=== PATIENT | male | born 1995 | race Caucasian/White ===

== ENCOUNTER → 2018-12-03 | Outpatient (CLI) | payer OTHER ==
--- NOTE | 2018-12-03 14:28 | REP ---
MRI POSTERIOR CHEST WALL: MRI posterior chest wall performed utilizing multiple sequences in the axial, coronal and sagittal planes prior to and following the intravenous administration of 15 mL ProHance. Reportedly, there is a palpable lump superiorly of the left posterior chest wall. The area is marked on the skin. At the site of the palpable lump, there is an oval benign appearing lipoma. It measures 7.7 x 1.4 x 7.0 cm. There is no internal soft tissue component and no significant internal enhancement. Other adjacent soft tissue structures demonstrate normal signal. No other soft tissue mass is seen of the visualized chest wall. IMPRESSION: At the site of the palpable abnormality in the posterior left chest wall, there is an oval benign appearing lipoma which measures 7.7 x 1.4 x 7.0 cm. Clinical followup is recommended. Repeat imaging would be recommended if there is increased size or pain associated with the mass. Electronically Signed by Karel Arreguin MD 12/03/2018 02:37 P
== END ==
LOC: M PLARAD 09:53
PROVIDERS: ATTEND Preventive Medicine Undersea and Hyperbaric Medicine
DX: D21.6 Benign neoplasm of connective and other soft tissue of trunk, unspecified (principal)

== ENCOUNTER 2020-07-24 22:49 | Emergency (ER) | payer OTHER ==
[~2020-07-24] VITALS: Ht 182.9 cm; Wt 95.6 kg
[2020-07-24 22:50] VITALS: BP 128/76
--- OUTSIDE RECORDS SUMMARY | 2020-07-24 22:54 | CCD ---
Author Author [facility] Organization [facility] Address Unknown Phone Unavailable Support Name Relationship Address Phone ALEKSANDRA ROMO Next Of Kin [id number] [place], [place] [id number] [facility] Next Of Kin [address] [place] [address] Unavailable Re-disclosure Warning The records that you are about to access may contain information from federally-assisted alcohol or drug abuse programs. If such information is present, then the following federally mandated warning applies: This information has been disclosed to you from records protected by federal confidentiality rules (42 CFR part 2). The federal rules prohibit you from making any further disclosure of this information unless further disclosure is expressly permitted by the written consent of the person to whom it pertains or as otherwise permitted by 42 CFR part 2. A general authorization for the release of medical or other information is NOT sufficient for this purpose. The Federal rules restrict any use of the information to criminally investigate or prosecute any alcohol or drug abuse patient.The records that you are about to access may contain highly sensitive health information, the redisclosure of which is protected by Article 27-F of the [facility] Public Health law. If you continue you may have access to information: Regarding HIV / AIDS; Provided by facilities licensed or operated by the [facility] Office of Mental Health; or Provided by the [facility] Office for People With Developmental Disabilities. If such information is present, then the following [facility] mandated warning applies: This information has been disclosed to you from confidential records which are protected by state law. State law prohibits you from making any further disclosure of this information without the specific written consent of the person to whom it pertains, or as otherwise permitted by law. Any unauthorized further disclosure in violation of state law may result in a fine or long term sentence or both. A general authorization for the release of medical or other information is NOT sufficient authorization for further disc losure. Family History Family Member Name Family Member Gender Family Member Status Date o f Status Description Data Source(s) Unknown Male Problem [facility] ([facility]) Insurance Providers Payer name Policy type / Coverage type Policy ID Covered constitution party ID Covered constitution party's relationship to aguila Policy [place] Plan Information [employer] [id number] SP [id number] [employer] [place] [id number] 18 [id number] [employer] - PHYSICIAN [id number] 18 [id number] [employer] - O/P [id number] 18 [id number] [employer] - O/P [id number] 18 [id number] [employer] - O/P [id number] 18 [id number] [employer] [id number] Self [id number] [employer] [place] [id number] 18 [id number] [employer] [id number] Self [id number]
[2020-07-24] MEDS ORDERED: CETI-24 PO (22:59)
[2020-07-24] MEDS ORDERED: predniSONE 20 MG TAB PO ONE (23:15)
[2020-07-24] MEDS ORDERED: PRED20TA PO (23:18)
[2020-07-24] MEDS ORDERED: TRIA1CR80 TOP (23:18)
--- OUTSIDE RECORDS SUMMARY | 2020-07-24 23:31 | CCD ---
Author Author [facility] Organization [facility] Address Unknown Phone Unavailable Support Name Relationship Address Phone ALEKSANDRA ROMO Next Of Kin [id number], [place] [id number] [facility] Next Of Kin [address] [place] [address] Unavailable Re-disclosure Warning The records that you [...] is protected by Article 27-F of the [facility] Public Health law. If you continue you may have access to information: Regarding HIV / AIDS; Provided by facilities licensed or operated by the [facility] Office of Mental Health; or Provided by the [facility] Office for People With Developmental Disabilities. If such information is present, then the following [facility] mandated warning applies: This information has been [...] law may result in a fine or correction sentence or both. A general authorization for the release of medical or other information is NOT sufficient authorization for further disc losure. Family History Family Member Name Family Member Gender Family Member Status Date o f Status Description Data Source(s) Unknown Male Problem [facility] ([facility]) Insurance Providers Payer name Policy type / Coverage type Policy ID Covered alliance party ID Covered alliance party's relationship to aguila Policy [place] Plan Information [employer] [id number] SP [id number] [employer] [place] [id number] 18 [id number] [employer] - PHYSICIAN [id number] 18 [id number] [employer] - O/P [id number] 18 [id number] [employer] - O/P [id number] 18 [id number] [employer] - O/P [id number] 18 [id number] [employer] [id number] Self [id number] [employer] [place] [id number] 18 [id number] [employer] [id number] Self [id number]
== END 2020-07-24 23:39 | disposition home or self-care (01) ==
LOC: M ED 22:49
DX: L25.9 Unspecified contact dermatitis, unspecified cause (principal); Z86.018 Personal history of other benign neoplasm

== ENCOUNTER 2020-10-08 12:18 | Emergency (ER) | payer OTHER ==
[~2020-10-08] VITALS: Ht 182.9 cm; Wt 91.3 kg
[~2020-10-08 12:18] MED LIST: CETI-24 PO; PRED20TA PO; TRIA1CR80 TOP
[2020-10-08] MEDS ORDERED: ONDANSETRON 4MG/2ML VIAL IV ONE (13:00)
[2020-10-08] MEDS ORDERED: MORPHINE 4 MG/ML 1ML VIAL/SYRINGE (J2270) IV ONE (13:00)
[2020-10-08 13:20] LABS: BASO % 0.4 % (0.0-1.0); EOS # 0.2 10^3/uL (0.0-0.5); HEMOGLOBIN 15.7 g/dl (13.5-17.5); LYMPH % 35.9 % (24.0-44.0); MEAN CORPUSCULAR HEMOGLOBIN 28.5 pg (27.0-33.0); MEAN CORPUSCULAR HGB CONC 33.4 g/dl (32.0-36.5); MEAN CORPUSCULAR VOLUME 85.5 fl (80.0-96.0); MONO # 0.6 10^3/uL (0.0-0.8); MONO % 10.9 % (2.0-8.0); NEUTROPHILS # 2.8 10^3/uL (1.5-8.5); NEUTROPHILS % 49.4 % (36.0-66.0); PLATELET COUNT, AUTOMATED 235 10^3/uL (150-450); WHITE BLOOD COUNT 5.6 10^3/uL (4.0-10.0)
--- NOTE | 2020-10-08 13:37 | REP ---
INDICATION: hx of L5 fx and now w numbness left leg. COMPARISON: None. TECHNIQUE: Axial CT lumbar spine, sagittal and coronal reconstruction images. FINDINGS: Small ossific density at the anterior superior aspect of L5 may represent an old avulsion fracture or unfused ossification center. I suspect an old avulsion fracture along the anterior aspect of the left L5-S1 facet joint. An ossific fragment at that location measures about 9 x 5 mm. This encroaches upon the exiting left L5 nerve root. Otherwise no acute fracture or dislocation is seen. There is no compression fracture. There is normal alignment and lumbar lordosis. Disc spaces are well preserved. I do not see significant disc bulging or herniation. There is no spinal stenosis. IMPRESSION: Old avulsion fracture suspected along the anterior aspect of the left L5-S1 facet joint. An ossific fragment at that location measures 9 x 5 mm and encroaches upon the exiting left L5 nerve root. Small old avulsion fracture or accessory ossicle at the anterior superior aspect of the L5 vertebral body. Otherwise no acute fracture or dislocation. <Electronically signed by Karel Arreguin > 10/08/20 [id number]
[2020-10-08 13:44] LABS: BLOOD UREA NITROGEN 16 MG/DL (7-18); CALCIUM LEVEL 9.7 MG/DL (8.5-10.1); CARBON DIOXIDE LEVEL 30 MEQ/L (21-32); CHLORIDE LEVEL 104 MEQ/L (98-107); CREATININE FOR GFR 0.87 MG/DL (0.70-1.30); GLOMERULAR FILTRATION RATE > 60.0 (>60); GLUCOSE, FASTING 78 MG/DL (70-100); POTASSIUM SERUM 4.2 MEQ/L (3.5-5.1); SODIUM LEVEL 138 MEQ/L (136-145)
--- NOTE | 2020-10-08 15:42 | REPVR ---
PROCEDURE INFORMATION: Exam: MR Lumbar Spine Without Contrast Exam date and time: 10/08/2020 12:56 PM Age: 24 years old Clinical indication: Numbness; Additional info: HX l5 FX and now w left leg numbness TECHNIQUE: Imaging protocol: Multiplanar magnetic resonance images of the lumbar spine without intravenous contrast. 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 There is also a fragment from the superior tip of the left superior articular process of S1 lying in the posterior left foramen at L5-S1 on the comparison CT study. There is no associated edema on the STIR images and this fragment is not visible on MRI. There is mild right lateral disc herniation at L5-S1 in the subarticular region on sagittal image 9 but with no nerve impingement. There is no nerve root compression. Spinal cord: The conus medullaris is normal. L1-L2: No significant disc disease. No significant spinal canal stenosis. No neural foraminal stenosis. L2-L3: No significant disc disease. No significant spinal canal stenosis. No neural foraminal stenosis. L3-L4: No significant disc disease. No significant spinal canal stenosis. No neural foraminal stenosis. L4-L5: No significant disc disease. No significant spinal canal stenosis. No neural foraminal stenosis. L5-S1: See "Vertebrae" finding. Soft tissues: Unremarkable. Other findings: The lower thoracic and mid and upper lumbar levels show no evidence of significant disc space narrowing, disc herniations, foraminal stenosis or canal compromise. 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 There is also a fragment from the superior tip of the left superior articular process of S1 lying in the posterior left foramen at L5-S1 on the comparison CT study. There is no associated edema on the STIR images and this fragment is not visible on MRI. There is mild right lateral disc herniation at L5-S1 in the subarticular region on sagittal image 9 but with no nerve impingement. There is no nerve root compression. Electronically signed by: Geoffrey Nixon On 10/08/2020 15:42:49 PM
[2020-10-08] MEDS ORDERED: IBUP-1022 PO (17:16)
[2020-10-08 17:41] VITALS: BP 125/67
--- NOTE | 2020-10-09 15:25 | ED PDOC ---
Post-Departure Follow-Up ct ls spine and mri ls spine faxed to [facility] Jerome Rivas MD Oct 09, 2020 15:25
== END 2020-10-08 18:01 | disposition home or self-care (01) ==
LOC: M ED 12:18
DX: M54.9 Dorsalgia, unspecified (principal); M54.16 Radiculopathy, lumbar region; M51.27 Other intervertebral disc displacement, lumbosacral region; Z87.81 Personal history of (healed) traumatic fracture; F17.200 Nicotine dependence, unspecified, uncomplicated; Z79.899 Other long term (current) drug therapy
CPT/HCPCS: 72131; 72148; 80048; 85025; 96374; 96375; 99284; J2270; J2405

== ENCOUNTER 2020-10-10 19:10 | Emergency (ER) | payer OTHER ==
[~2020-10-10] VITALS: Ht 182.9 cm; Wt 90.9 kg
[~2020-10-10 19:10] MED LIST changes: +IBUP-1022 PO
[2020-10-10] MEDS ORDERED: LIDO5DIS41 TOP (19:25)
[2020-10-10] MEDS ORDERED: HYDR-4571 PO (19:25)
[2020-10-10] MEDS ORDERED: CYCL-707 PO (19:25)
[2020-10-10] MEDS ORDERED: NS 1,000 ML IV ONE (21:05)
[2020-10-10 21:39] LABS: BASO % 0.4 % (0.0-1.0); EOS # 0.2 10^3/uL (0.0-0.5); HEMATOCRIT 43.8 % (42.0-52.0); HEMOGLOBIN 14.5 g/dl (13.5-17.5); LYMPH # 2.8 10^3/uL (1.5-5.0); LYMPH % 38.7 % (24.0-44.0); MEAN CORPUSCULAR HEMOGLOBIN 28.6 pg (27.0-33.0); MEAN CORPUSCULAR HGB CONC 33.1 g/dl (32.0-36.5); MEAN CORPUSCULAR VOLUME 86.4 fl (80.0-96.0); MONO # 0.6 10^3/uL (0.0-0.8); MONO % 8.2 % (2.0-8.0); NEUTROPHILS # 3.6 10^3/uL (1.5-8.5); NEUTROPHILS % 49.4 % (36.0-66.0); PLATELET COUNT, AUTOMATED 236 10^3/uL (150-450); RED BLOOD COUNT 5.07 10^6/uL (4.30-6.10); WHITE BLOOD COUNT 7.3 10^3/uL (4.0-10.0)
[2020-10-10 21:42] LABS: APPEARANCE, URINE CLEAR (CLEAR); BACTERIA, URINE AUTO NEGATIVE (NEGATIVE); BILIRUBIN, URINE AUTO NEGATIVE (NEGATIVE); BLOOD, URINE BLOOD NEGATIVE (NEGATIVE); COLOR, URINE YELLOW (YELLOW); GLUCOSE, URINE (UA) AUTO NEGATIVE (NEGATIVE); KETONE, URINE AUTO NEGATIVE (NEGATIVE); LEUKOCYTE ESTERASE, URINE AUTO NEGATIVE (NEGATIVE); MUCUS, URINE SMALL (NEGATIVE); NITRITE, URINE AUTO NEGATIVE (NEGATIVE); PROTEIN, URINE AUTO NEGATIVE (NEGATIVE); RBC, URINE AUTO 2 /HPF (0-3); SPECIFIC GRAVITY URINE AUTO 1.023 (1.002-1.035); SQUAMOUS EPITHELIAL CELL UR AU 0 /HPF (0-6); WBC, URINE AUTO 1 /HPF (0-3)
--- NOTE | 2020-10-10 22:00 | REPVR ---
PROCEDURE INFORMATION: Exam: CT Head Without Contrast Exam date and time: 10/10/2020 9:38 PM Age: 24 years old Clinical indication: Syncope and collapse TECHNIQUE: Imaging protocol: Computed tomography of the head without contrast. Radiation optimization: All CT scans at this facility use at least one of these dose optimization techniques: automated exposure control; mA and/or kV adjustment per patient size (includes targeted exams where dose is matched to clinical indication); or iterative reconstruction. COMPARISON: No relevant prior studies available. FINDINGS: Brain: No intracranial hemorrhage or extra-axial fluid collection. No evidence of mass effect or midline shift. Arreguin-white matter differentiation is intact. Cerebral ventricles: No ventriculomegaly. Bones/joints: No acute osseus lesion or fracture. Paranasal sinuses: Visualized sinuses are unremarkable. No fluid levels. Mastoid air cells: Unremarkable. Soft tissues: Unremarkable. IMPRESSION: No acute intracranial pathology. Electronically signed by: Chacho Peralta On 10/10/2020 21:59:56 PM
[2020-10-10 22:04] LABS: AMPHETAMINES LEVEL URINE NEGATIVE (NEGATIVE); BARBITURATES URINE NEGATIVE (NEGATIVE); BENZODIAZEPINES URINE POSITIVE (NEGATIVE); CANNABINOIDS URINE NEGATIVE (NEGATIVE); COCAINE METABOLITE URINE NEGATIVE (NEGATIVE); METHADONE URINE NEGATIVE (NEGATIVE); OPIATES URINE POSITIVE (NEGATIVE); PHENCYCLIDINE URINE NEGATIVE (NEGATIVE)
[2020-10-10 22:10] LABS: ACETAMINOPHEN LEVEL < 2.0 UG/ML (10.0-30.0); ETHYL ALCOHOL (ETHANOL) < 0.003 % (0.000-0.010); SALICYLATE LEVEL < 1.7 MG/DL (5.0-30.0)
[2020-10-10 22:13] LABS: RSV AMPLIFICATION NEGATIVE (NEGATIVE)
[2020-10-10 22:14] LABS: ALBUMIN 4.1 GM/DL (3.2-5.2); ALT/SGPT 31 U/L (12-78); BILIRUBIN,TOTAL 0.3 MG/DL (0.2-1.0); BLOOD UREA NITROGEN 11 MG/DL (7-18); CARBON DIOXIDE LEVEL 30 MEQ/L (21-32); CHLORIDE LEVEL 108 MEQ/L (98-107); CK-MB VALUE MASS < 1.0 NG/ML (<3.6); CPK CREATINE PHOSPHOKINASE 83 U/L (39-308); CREATININE FOR GFR 1.03 MG/DL (0.70-1.30); FREE T4 0.98 NG/DL (0.76-1.46); GLOMERULAR FILTRATION RATE > 60.0 (>60); GLUCOSE, FASTING 95 MG/DL (70-100); POTASSIUM SERUM 3.5 MEQ/L (3.5-5.1); SODIUM LEVEL 142 MEQ/L (136-145); TOTAL PROTEIN 7.2 GM/DL (6.4-8.2); TROPONIN I < 0.02 NG/ML (< 0.10)
--- NOTE | 2020-10-10 23:24 | ECGEPIP ---
[facility] - ED Test Date: 2020-10-10 Pat Name: DAVID ROMO Department: Room: - Gender: Male Social Media Marketing Manager: BJ : 1995 Requested By: ANGELES Carver Order Number: [id number] Reading MD: Joe Ontiveros Measurements Intervals [place] Rate: 56 P: 27 [place]: 94 QRS: 47 QRSD: 92 T: 56 QT: 424 QTc: 409 Interpretive Statements Sinus bradycardia with short OH POOR R WAVE PROGRESSION NO PRIORS FOR COMPARISON Electronically Signed on 10-10-2020 23:23:57 EDT by Joe Ontiveros
[2020-10-11 00:44] VITALS: BP 125/65
== END 2020-10-11 00:54 | disposition home or self-care (01) ==
LOC: M ED 19:10
DX: F13.10 Sedative, hypnotic or anxiolytic abuse, uncomplicated (principal); R55 Syncope and collapse; R00.1 Bradycardia, unspecified; G89.29 Other chronic pain; M54.9 Dorsalgia, unspecified; F17.200 Nicotine dependence, unspecified, uncomplicated

== ENCOUNTER 2021-09-08 00:11 | Emergency (ER) | payer OTHER ==
[~2021-09-08] VITALS: Ht 185.4 cm; Wt 89.1 kg
[~2021-09-08 00:11] MED LIST changes: +CYCL-707 PO; +HYDR-4571 PO; +LIDO5DIS41 TOP
[2021-09-08 00:13] VITALS: BP 128/72
[2021-09-08] MEDS ORDERED: ANUSOL HC 25MG SUPP PR STA (01:29)
[2021-09-08] MEDS ORDERED: DOCUSATE SODIUM 100MG CAPSULE PO ONE (01:30)
[2021-09-08] MEDS ORDERED: COLA100C5 PO (01:30)
[2021-09-08] MEDS ORDERED: ANUS25SU PR (01:31)
== END 2021-09-08 02:01 | disposition home or self-care (01) ==
LOC: M ED 00:11
DX: K64.8 Other hemorrhoids (principal); K62.5 Hemorrhage of anus and rectum